=== PATIENT | male | born 1940 | race Caucasian/White ===

== ENCOUNTER 2017-07-27 18:57 | Emergency (ER) | payer MEDICARE, MEDICAID ==
[~2017-07-27] VITALS: Ht 170.2 cm; Wt 79.0 kg
[2017-07-27] MEDS ORDERED: TETANUS, DIPHTHERIA, PERTUSSIS VAC/PF 0.5ML (>7YR OLD) IM ONE (22:45)
[2017-07-28 00:30] VITALS: BP 145/89
== END 2017-07-28 00:51 | disposition home or self-care (01) ==
LOC: ER 22:50
DX: S06.0X0A Concussion without loss of consciousness, initial encounter (principal); S01.01XA Laceration without foreign body of scalp, initial encounter; S22.39XA Fracture of one rib, unspecified side, initial encounter for closed fracture; Y04.2XXA Assault by strike against or bumped into by another person, initial encounter; Y93.89 Activity, other specified; Y92.89 Other specified places as the place of occurrence of the external cause; Z23 Encounter for immunization
CPT/HCPCS: 12002; 70450; 71046; 72125; 90471; 90715; 99284